=== PATIENT | female | born 1935 | race Caucasian/White ===

== ENCOUNTER 2024-06-11 14:46 | Emergency (ER) | payer OTHER ==
[~2024-06-11] VITALS: Ht 170.2 cm; Wt 63.6 kg
[2024-06-11 14:52] VITALS: BP 151/103; PULSE 67; RESP 18; O2SAT 96
== END 2024-06-11 17:40 | disposition left against medical advice (07) ==
LOC: ER 14:46 → EDBD 14:46 → ER 17:40
DX: R42 Dizziness and giddiness (principal); R11.0 Nausea; R68.83 Chills (without fever); Z53.21 Procedure and treatment not carried out due to patient leaving prior to being seen by health care provider